=== PATIENT | female | born 1980 | race Caucasian/White ===

== ENCOUNTER 2018-05-21 16:33 | Emergency (ER) | payer MEDICAID, OTHER ==
[~2018-05-21] VITALS: Ht 162.6 cm; Wt 100.0 kg
[2018-05-21 17:23] LABS: BASOPHILS % (AUTO) 0.2 % (0-1); EOSINOPHILS % (AUTO) 0.4 % (0-6); HEMATOCRIT 40.8 % (35.0-45.0); HEMOGLOBIN 13.7 g/dl (12.0-16.0); LYMPHOCYTES # (AUTO) 0.5 X10'3 (1.1-4.8); LYMPHOCYTES % (AUTO) 4.9 % (21-51); MEAN CORPUSCULAR HEMOGLOBIN 28.1 PG (27.0-31.0); MEAN CORPUSCULAR HGB CONC 33.5 g/dL (33.0-36.5); MEAN CORPUSCULAR VOLUME 83.9 FL (78-98); MONOCYTES # (AUTO) 0.3 X10'3 (0-0.9); MONOCYTES % (AUTO) 2.8 % (2-12); NEUTROPHILS % (AUTO) 91.7 % (42-75); PLATELET COUNT 311 X10'3 (140-440); RED BLOOD COUNT 4.86 X10'6 (4.20-5.60); RED CELL DISTRIBUTION WIDTH 13.7 % (11.5-14.5); WHITE BLOOD COUNT 10.9 X10'3 (4.5-11.0)
[2018-05-21 17:40] LABS: ALANINE AMINOTRANSFERASE 83 U/L (12-78); ALKALINE PHOSPHATASE 107 IU/L (46-116); ANION GAP 9 (8-16); ASPARTATE AMINO TRANSFERASE 19 U/L (10-37); BILIRUBIN,TOTAL 0.5 MG/DL (0.1-1.0); BLOOD UREA NITROGEN 10 MG/DL (7-18); BUN/CREATININE RATIO 12.2 (6.6-38.0); CALCIUM 9.3 MG/DL (8.5-10.1); CHLORIDE 104 MMOL/L (99-107); CREATININE 0.82 MG/DL (0.40-0.90); GLUCOSE 120 MG/DL (70-104); POTASSIUM 3.5 MMOL/L (3.5-5.1); SODIUM 139 MMOL/L (135-145); TOTAL CARBON DIOXIDE 25.6 MMOL/L (24-32); eGFR 79 ML/MIN
[2018-05-21] MEDS ORDERED: normal saline 1000ML IV soln IVB ONE (20:35)
[2018-05-21] MEDS ORDERED: HYDROcodone/acetaminophen 5mg/325mg tablet PO ONE (20:35)
[2018-05-21] MEDS ORDERED: ondansetron/PF 4mg/2ml inj IV ONE (20:35)
[2018-05-21 20:52] LABS: LIPASE 143 U/L (73-393)
--- NOTE | 2018-05-21 20:53 | NUR ---
Pt states she is on the depo shot and just finished her period and is not and opts to have the CT and not provide a urine sample. She said she has no urine.
--- NOTE | 2018-05-21 21:12 | NUR ---
pt cannot take the norco r/t she is driving. She said she would take tylenol
[2018-05-21] MEDS ORDERED: acetaminophen 325mg tablet PO STA (21:13)
[2018-05-21 21:20] VITALS: BP 110/65
[2018-05-21] MEDS ORDERED: ONDA4TAB6 PO (22:18)
[2018-05-21] MEDS ORDERED: HYDR-4383 PO (22:18)
[2018-05-21] MEDS ORDERED: AMOX-580 PO (22:27)
[2018-05-21] MEDS ORDERED: amox tr/potassium clavulanate 875/125mg TAB PO ONE (22:30)
== END 2018-05-21 22:49 | disposition home or self-care (01) ==
LOC: ER 16:34
DX: K52.9 Noninfective gastroenteritis and colitis, unspecified (principal); J02.9 Acute pharyngitis, unspecified; R09.89 Other specified symptoms and signs involving the circulatory and respiratory systems; R05 Cough; Z79.899 Other long term (current) drug therapy
CPT/HCPCS: 36415; 74176; 80053; 83690; 85025; 85610; 93005; 96361; 96374; 99284; J2405; J7030

== ENCOUNTER 2018-12-01 16:14 | Emergency (ER) | payer MEDICAID ==
[~2018-12-01] VITALS: Ht 170.2 cm; Wt 90.0 kg
[~2018-12-01 16:14] MED LIST: HYDR-4383 PO; ONDA4TAB6 PO; ONDA8TAB6 PO
[2018-12-01 16:18] VITALS: BP 120/81
[2018-12-01] MEDS ORDERED: proparacaine 0.5% ophthalmic drops 15ml EACHEYE ONE (16:40)
--- NOTE | 2018-12-01 16:48 | NUR ---
EYE CART ALCAINE DROPS PLACED AT BEDSIDE.
[2018-12-01] MEDS ORDERED: ACET-3068 PO (16:57)
[2018-12-01] MEDS ORDERED: SULF5DRO RIGHTEYE (16:57)
== END 2018-12-01 17:22 | disposition home or self-care (01) ==
LOC: ER 16:14
DX: H57.11 Ocular pain, right eye (principal); H57.89 Other specified disorders of eye and adnexa; Z79.899 Other long term (current) drug therapy
CPT/HCPCS: 99283

== ENCOUNTER 2021-02-04 12:20 | Emergency (ER) | payer MEDICAID ==
[~2021-02-04] VITALS: Ht 154.9 cm; Wt 104.0 kg
[~2021-02-04 12:20] MED LIST changes: +SULF5DRO RIGHTEYE
[2021-02-04 13:13] VITALS: BP 129/93
[2021-02-04] MEDS ORDERED: cyclobenzaprine 10mg tablet PO ONE (13:20)
[2021-02-04] MEDS ORDERED: CYCL-1 PO (14:04)
== END 2021-02-04 14:18 | disposition home or self-care (01) ==
LOC: ER 12:22
DX: S13.4XXA Sprain of ligaments of cervical spine, initial encounter (principal); R51.9 Headache, unspecified; M54.2 Cervicalgia; M54.81 Occipital neuralgia; Z79.899 Other long term (current) drug therapy; V89.2XXA Person injured in unspecified motor-vehicle accident, traffic, initial encounter; Y93.89 Activity, other specified; Y92.89 Other specified places as the place of occurrence of the external cause; Y99.8 Other external cause status
CPT/HCPCS: 99283

== ENCOUNTER 2024-04-14 11:31 | Outpatient (CLI) | payer OTHER ==
[~2024-04-14 11:31] MED LIST changes: +CYCL-1 PO
== END 2024-04-14 23:59 | disposition home or self-care (01) ==
LOC: RAD 11:31
PROVIDERS: ATTEND Podiatrist Foot & Ankle Surgery
DX: M25.872 Other specified joint disorders, left ankle and foot (principal); M79.672 Pain in left foot; M24.675 Ankylosis, left foot
CPT/HCPCS: 73700